=== PATIENT | male | born 1995 | race Caucasian/White ===

== ENCOUNTER 2017-02-27 01:23 | Emergency (ER) | payer OTHER ==
[~2017-02-27] VITALS: Ht 177.8 cm; Wt 73.0 kg
[2017-02-27 01:24] VITALS: BP 138/81; PULSE 86; RESP 16; TEMP 97.9; O2SAT 96
[2017-02-27] MEDS ORDERED: ADVA100A INH (01:36)
[2017-02-27 02:21] LABS: AUTOMATED NEUTROPHIL # 1.7 TH/MM3 (1.8-7.7); BASOPHIL # 0.1 TH/MM3 (0-0.2); EOSINOPHIL # 0.2 TH/MM3 (0-0.4); EOSINOPHIL % 4.3 % (0.0-4.0); HEMO FLAGS DIFF FINAL; LYMPH % 55.7 % (9.0-44.0); MEAN CELL VOLUME 86.4 FL (80.0-100.0); MEAN CORPUSCULAR HEMOGLOBIN 29.5 PG (27.0-34.0); MEAN CORPUSCULAR HGB CONC 34.1 % (32.0-36.0); MONO % 7.9 % (0.0-8.0); NEUT % 31.1 % (16.0-70.0); PLATELET COUNT 194 TH/MM3 (150-450); RED BLOOD COUNT 5.43 MIL/MM3 (4.50-5.90); WHITE BLOOD COUNT 5.4 TH/MM3 (4.0-11.0)
[2017-02-27 02:38] LABS: ALT (GPT) 28 U/L (12-78); ANION GAP 7 MEQ/L (5-15); AST (GOT) 23 U/L (15-37); BICARBONATE 28.7 MEQ/L (21.0-32.0); BLOOD UREA NITROGEN 11 MG/DL (7-18); CHLORIDE 106 MEQ/L (98-107); GLOMERULAR FILTRATION RATE 89 ML/MIN (>89); POTASSIUM 4.2 MEQ/L (3.5-5.1); SODIUM (NA) 142 MEQ/L (136-145)
[2017-02-27 02:40] LABS: ALKALINE PHOSPHATASE 99 U/L (45-117); TOTAL BILIRUBIN ADULT 0.2 MG/DL (0.2-1.0)
[2017-02-27 02:48] LABS: ALCOHOL 141 MG/DL (0-5)
--- NOTE | 2017-02-27 03:10 | PD ---
HPI Chief Complaint: Psychiatric Symptoms Time Seen by Provider: 01:39 Travel History International Travel<30 days: No Contact w/Intl Traveler<30days: No Traveled to known affect area: No History of Present Illness HPI Patient is a 21 year old male who comes in due to depression and suicidal thoughts. He says he has been under a lot of stress and he just feels very sad. 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 This has made him very depressed. He says he thought about hanging himself. He denies having done anything to hurt himself. He says he has never attempted suicide in the past. He has no medical complaints at this time. [facility] Past Medical History Cancer: Yes (TESTICULAR CA ) ?: Not Past Surgical History Surgical History: No Previous Surgery Social History Alcohol Use: Yes Tobacco Use: No Substance Use: No Allergies-Medications (Allergen,Severity, Reaction): Coded Allergies: No Known Allergies (Unverified , 02/27/17) Reported Meds & Prescriptions Reported Meds & Active Scripts Active Reported Advair Diskus Inh (Fluticasone-Salmeterol Inh) 100-50 Mcg/Blist Aer 1 Puff INH BID Rinse mouth after use. Review of Systems Except as stated in HPI: all other systems reviewed are Neg General / Constitutional: No: Fever, Chills Eyes: No: Blurred Vision HENT: No: Headaches, Lightheadedness Cardiovascular: No: Chest Pain or Discomfort Respiratory: No: Shortness of Breath Gastrointestinal: No: Nausea, Vomiting Musculoskeletal: No: Edema, Pain Skin: No Rash, No Change in Pigmentation Neurologic: No: Weakness, Dizziness Psychiatric: Positive: Depression, Suicidal Ideations Physical Exam Narrative GENERAL: Awake and alert, in no acute distress. SKIN: Focused skin assessment warm/dry. HEAD: Atraumatic. Normocephalic. EYES: Pupils equal and round. No scleral icterus. No injection or drainage. ENT: Mucous membranes pink and moist. NECK: Trachea midline. No JVD. CARDIOVASCULAR: Regular rate and rhythm. No murmur appreciated. RESPIRATORY: No accessory muscle use. Clear to auscultation. Breath sounds equal bilaterally. GASTROINTESTINAL: Abdomen soft, non-tender, nondistended. MUSCULOSKELETAL: No obvious deformities. No clubbing. No cyanosis. No edema. NEUROLOGICAL: Awake and alert. No obvious cranial nerve deficits. Motor grossly within normal limits. Normal speech. PSYCHIATRIC: Appropriate mood and affect; insight and judgment normal. Data Data Last Documented VS Vital Signs Date Time Temp Pulse Resp B/P (MAP) Pulse Ox O2 Delivery O2 Flow Rate FiO2 02/27/17 01:24 97.9 86 16 138/81 (100) 96 Room Air Orders Orders Complete Blood Count With Diff (02/27/17 01:47) Comprehensive Metabolic Panel (02/27/17 01:47) Psych Screen (02/27/17 01:47) Drug Screen, Random Urine (02/27/17 01:47) Alcohol (Ethanol) (02/27/17 01:47) Labs Laboratory Tests Test 02/27/17 01:51 White Blood Count 5.4 TH/MM3 Red Blood Count 5.43 MIL/MM3 Hemoglobin 16.0 GM/DL Hematocrit 47.0 % Mean Corpuscular Volume 86.4 FL Mean Corpuscular Hemoglobin 29.5 PG Mean Corpuscular Hemoglobin Concent 34.1 % Red Cell Distribution Width 13.0 % Platelet Count 194 TH/MM3 Mean Platelet Volume 8.3 FL Neutrophils (%) (Auto) 31.1 % Lymphocytes (%) (Auto) 55.7 % Monocytes (%) (Auto) 7.9 % Eosinophils (%) (Auto) 4.3 % Basophils (%) (Auto) 1.0 % Neutrophils # (Auto) 1.7 TH/MM3 Lymphocytes # (Auto) 3.0 TH/MM3 Monocytes # (Auto) 0.4 TH/MM3 Eosinophils # (Auto) 0.2 TH/MM3 Basophils # (Auto) 0.1 TH/MM3 CBC Comment DIFF FINAL Differential Comment Blood Urea Nitrogen 11 MG/DL Creatinine 1.05 MG/DL Random Glucose 95 MG/DL Total Protein 8.2 GM/DL Albumin 4.5 GM/DL Calcium Level 8.8 MG/DL Alkaline Phosphatase 99 U/L Aspartate Amino Transf (AST/SGOT) 23 U/L Alanine Aminotransferase (ALT/SGPT) 28 U/L Total Bilirubin 0.2 MG/DL Sodium Level 142 MEQ/L Potassium Level 4.2 MEQ/L Chloride Level 106 MEQ/L Carbon Dioxide Level 28.7 MEQ/L Anion Gap 7 MEQ/L Estimat Glomerular Filtration Rate 89 ML/MIN Ethyl Alcohol Level 141 MG/DL [facility] Medical Decision Making Medical Screen Exam Complete: Yes Emergency Medical Condition: Yes Differential Diagnosis depression vs intoxication vs psychosis Narrative Course Patient is a 21 year old male who comes in due to depression and thoughts of hurting himself. He has no medical complaints at this time. Patient is currently here voluntarily. However, if he changes his mind and does not want to be here voluntarily, he will be placed under a bethea act. Exam shows no acute abnormalities. Labs sent show an alcohol level of 141, no other abnormalities. Patient will be medically cleared for psychiatric evaluation. Diagnosis Primary Impression: Depression Qualified Codes: F32.9 - Major depressive disorder, single episode, unspecified Condition: Stable Harika Pink MD Feb 27, 2017 03:10
[2017-02-27 06:21] VITALS: BP 115/56; PULSE 91; RESP 18; O2SAT 97
[2017-02-27 08:02] VITALS: BP 124/66; PULSE 88; RESP 20; TEMP 98.6; O2SAT 98
[2017-02-27 11:09] VITALS: BP 124/66; PULSE 88; RESP 20; O2SAT 98
--- NOTE | 2017-02-27 12:42 | PD ---
Physical Exam Date Seen by Provider: Feb 27, 2017 Time Seen by Provider: 12:40 Narrative This is a 21-year-old male who was seen earlier by Dr. Pink for depression. Patient had a recently diagnosed sticky or cancer that was treated successfully the summer. 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 He had suicidal thoughts. He was medically clear for psychiatric evaluation. The patient is been evaluated by the psychiatric screener. The patient is currently remorseful for his ideation. He reports that he had ingested alcohol earlier. Now that he sobered, he states that he is no longer suicidal. Data Data Last Documented VS Vital Signs Date Time Temp Pulse Resp B/P (MAP) Pulse Ox O2 Delivery O2 Flow Rate FiO2 02/27/17 11:09 88 20 124/66 (85) 98 Room Air 02/27/17 08:02 98.6 Orders Orders Complete Blood Count With Diff (02/27/17 01:47) Comprehensive Metabolic Panel (02/27/17 01:47) Psych Screen (02/27/17 01:47) Drug Screen, Random Urine (02/27/17 01:47) Alcohol (Ethanol) (02/27/17 01:47) Diet Regular Basic (02/27/17 Breakfast) Diet Regular Basic (02/27/17 Lunch) Labs Laboratory Tests Test 02/27/17 01:51 02/27/17 06:26 White Blood Count 5.4 TH/MM3 Red Blood Count 5.43 MIL/MM3 Hemoglobin 16.0 GM/DL Hematocrit 47.0 % Mean Corpuscular Volume 86.4 FL Mean Corpuscular Hemoglobin 29.5 PG Mean Corpuscular Hemoglobin Concent 34.1 % Red Cell Distribution Width 13.0 % Platelet Count 194 TH/MM3 Mean Platelet Volume 8.3 FL Neutrophils (%) (Auto) 31.1 % Lymphocytes (%) (Auto) 55.7 % Monocytes (%) (Auto) 7.9 % Eosinophils (%) (Auto) 4.3 % Basophils (%) (Auto) 1.0 % Neutrophils # (Auto) 1.7 TH/MM3 Lymphocytes # (Auto) 3.0 TH/MM3 Monocytes # (Auto) 0.4 TH/MM3 Eosinophils # (Auto) 0.2 TH/MM3 Basophils # (Auto) 0.1 TH/MM3 CBC Comment DIFF FINAL Differential Comment Blood Urea Nitrogen 11 MG/DL Creatinine 1.05 MG/DL Random Glucose 95 MG/DL Total Protein 8.2 GM/DL Albumin 4.5 GM/DL Calcium Level 8.8 MG/DL Alkaline Phosphatase 99 U/L Aspartate Amino Transf (AST/SGOT) 23 U/L Alanine Aminotransferase (ALT/SGPT) 28 U/L Total Bilirubin 0.2 MG/DL Sodium Level 142 MEQ/L Potassium Level 4.2 MEQ/L Chloride Level 106 MEQ/L Carbon Dioxide Level 28.7 MEQ/L Anion Gap 7 MEQ/L Estimat Glomerular Filtration Rate 89 ML/MIN Ethyl Alcohol Level 141 MG/DL Urine Opiates Screen NEG Urine Barbiturates Screen NEG Urine Amphetamines Screen NEG Urine Benzodiazepines Screen NEG Urine Cocaine Screen NEG Urine Cannabinoids Screen NEG MDM Medical Record Reviewed: Yes Supervised Visit with CLARK: No Narrative Course 21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 He was depressed and drinking alcohol last night and had suicidal thoughts. Now that he is sober, he no longer feels suicidal. He's been evaluated by our psychiatric screener who was discussed with him in depth his options. He does have availability for counseling at [facility]. He states he will follow up with them. He is encouraged not to drink alcohol. He is encouraged to return if he develops any further's thoughts of hurting himself. Diagnosis Primary Impression: Depression Qualified Codes: F32.9 - Major depressive disorder, single episode, unspecified Additional Impression: Adjustment disorder Additional Instruction: Avoid drinking alcohol. Return of feelings of hurting herself returns. Follow up with counselor at the [facility] clinic. Disposition: 01 DISCHARGE HOME Condition: Stable Kevin Villalobos MD Feb 27, 2017 12:42
[2017-02-27 14:00] VITALS: BP 117/75; PULSE 79; RESP 18
== END 2017-02-27 15:25 | disposition home or self-care (01) ==
LOC: NEPC 01:23 → NEPJ 15:25
DX: F32.9 Major depressive disorder, single episode, unspecified (principal); F43.20 Adjustment disorder, unspecified; R45.851 Suicidal ideations; C61 Malignant neoplasm of prostate; Z79.52 Long term (current) use of systemic steroids
CPT/HCPCS: 80053; 80307; 85025; 99284